=== PATIENT | female | born 1985 | race African-American/Black ===

== ENCOUNTER 2017-01-11 14:37 | Emergency (ER) | payer BC ==
[~2017-01-11] VITALS: Ht 162.6 cm; Wt 83.0 kg
[~2017-01-11 14:37] MED LIST: PERC10TA27 PO; Z.0.NO CURRENT MEDS
[2017-01-11 14:44] VITALS: BP 203/122; PULSE 89; RESP 16; TEMP 98.2; O2SAT 99
[2017-01-11] MEDS ORDERED: amLODIPine BESYLATE 5 MG TAB PO ONE (15:00)
[2017-01-11] MEDS ORDERED: AMLO5TAB2 PO (15:01)
--- NOTE | 2017-01-11 15:03 | PD ---
HPI Chief Complaint: Hypertension Time Seen by Provider: 14:53 Travel History International Travel<30 days: No Contact w/Intl Traveler<30days: No Traveled to known affect area: No History of Present Illness HPI 31-year-old female presents to the emergency department for evaluation of hypertension. 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 The were learning about blood pressure yesterday and her blood pressure was taken and was noted to be elevated. Patient states she went to [facility], but they sent her to the emergency department. Patient states that she feels perfectly fine. No headache. No chest or shortness breath. No abdominal pain. No nausea, vomiting, diarrhea. She denies any chance of . Patient has no complaints. She reports no chronic medical problems and takes no prescribed medications. She states she has an appointment on with her primary care physician. PFSH Past Medical History Medical History: Denies Significant Hx Influenza Vaccination: No ?: Not LMP: : 0 Para: 0 Miscarriage: 0 : 0 Past Surgical History Surgical History: No Previous Surgery Social History Alcohol Use: Yes (RARELY) Tobacco Use: No Substance Use: No Allergies-Medications (Allergen,Severity, Reaction): Coded Allergies: No Known Allergies (Unverified Adverse Reaction, Unknown, 01/11/17) Reported Meds & Prescriptions Reported Meds & Active Scripts Active Review of Systems Except as stated in HPI: all other systems reviewed are Neg Physical Exam Narrative GENERAL: Well-nourished, well-developed female patient, ambulatory. Afebrile. SKIN: Focused skin assessment warm/dry. HEAD: Normocephalic. Atraumatic. EYES: No scleral icterus. No injection or drainage. NECK: Supple, trachea midline. No JVD or lymphadenopathy. CARDIOVASCULAR: Regular rate and rhythm without murmurs, gallops, or rubs. RESPIRATORY: Breath sounds equal bilaterally. No accessory muscle use. Lungs are clear to auscultation. GASTROINTESTINAL: Abdomen soft, non-tender, nondistended. MUSCULOSKELETAL: No cyanosis, or edema. BACK: Nontender without obvious deformity. No CVA tenderness. 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 She states that she has no medical complaints and feels fine. Review of systems is negative. She denies any chance of . I discussed the case my attending physician , Dr. Gates, who agrees with plan and disposition. Patient will be started on amlodipine 5 mg daily. She'll be given her first dose here. She has an appointment to follow-up with her primary care physician. She is instructed to keep this appointment and follow-up. She verbalizes agreement and understanding. The patient was discharged in stable condition with instructions, including return instructions and follow up instructions. Diagnosis Primary Impression: Hypertension Qualified Codes: I10 - Essential (primary) hypertension Referrals: Primary Care Physician 2 days Patient Instructions: General Instructions, Hypertension (ED) Additional Instructions: Take amlodipine daily as directed. Keep your appointment with your primary care physician on for follow- up. Return to the emergency department for any acute worsening of symptoms. Med/Other Pt SpecificInfo: Prescription(s) given Scripts Amlodipine (Amlodipine) 5 Mg Tab 5 MG PO DAILY for Blood Pressure Management, #30 TAB 0 Refills Prov: Brunilda Garner 01/11/17 Disposition: 01 DISCHARGE HOME Condition: Stable Brunilda Garner Jan 11, 2017 15:03
[2017-01-13] MEDS ORDERED: AMLO5TAB2 PO (11:03)
[2017-01-13] MEDS ORDERED: LISI-519 PO (11:03)
== END 2017-01-11 15:48 | disposition home or self-care (01) ==
LOC: PHEFT 14:37
DX: I10 Essential (primary) hypertension (principal)
CPT/HCPCS: 99283